=== PATIENT | male | born 1965 | race Caucasian/White ===

== ENCOUNTER 2017-10-05 09:21 | Day surgery (SDC) | END 2017-10-05 15:53 | disposition home or self-care (01) ==

== ENCOUNTER 2018-09-08 09:03 | Day surgery (SDC) | payer OTHER ==
[2018-09-07 18:00] VITALS: BMI 36.4
[2018-09-08] VITALS (12 sets, daily range): BP systolic 122–140; BP diastolic 77–89; PULSE 62–84; RESP 13–20; Ht 167.6 cm; Wt 100.3 kg
[~2018-09-08] VITALS: Ht 167.6 cm; Wt 100.3 kg
[~2018-09-08 09:03] MED LIST: CEFAZOLIN 2 GM/50 ML (PMX) 50 ML IVPB ONE; SEVOFLURANE 15 MIN ONE; SOD CHLORIDE 0.9% 1,000 ML IV SCH
[2018-09-08] MEDS ORDERED: BUPIVACAINE 0.25% (MPF) 30 ML INJ ONE (11:45)
--- NOTE | 2018-09-08 11:47 | PREAC ---
Date/Time of Note Date/Time of Note DATE: 09/08/18 TIME: 11:46 Anesthesia Eval and Record Evaluation Time Pre-Procedure Interview DATE: 09/08/18 TIME: 11:46 Age 53 Sex male NPO: 8 hrs Preoperative diagnosis Left shoulder mass Planned procedure Excision of mass Past Medical History Past Medical History: Includes GI: Obesity Surgery & Anesthesia Issues No known issue Meds Anticoagulation: No Beta Mary Anne within 24 hr: No Reason Beta Mary Anne not given: Pt. not on B-Mary Anne No Active Prescriptions or Reported Meds Current Medications Sodium Chloride 1,000 ml @ 75 mls/hr [id number] IV ; Start 09/08/18 at 09:00; Stop 09/08/18 at 22:19 Meds reviewed: Yes Allergies Coded Allergies: No Known Allergy (Unverified , 09/07/18) Allergies Reviewed: Yes Labs/Studies Labs Reviewed: Reviewed by anesthesiologist test: N/A Pre-procedure Exam Last vitals Vital Signs Date Temp Pulse Resp B/P (MAP) Pulse Ox O2 O2 Flow FiO2 Time Delivery Rate 09/08/18 96.3 66 16 123/84 99 Room Air 09:59 (97) Airway: Adequate mouth opening Mallampati: Mallampati II Teeth: Normal Lung: Normal Heart: Normal ASA Physical Status ASA physical status: 2 Emergency: None Planned Anesthetic General/MAC: LMA, MAC Planned Pain Management Parenteral pain med Pre-operative Attestations Prior to commencing anesthesia and surgery, the patient was re-evaluated, there was verification of: *The patient's identity *The results of appropriate recent lab work and preoperative vital signs *The above evaluation not changing prior to induction *Anesthetic plan, risk benefits, alternative and complications discussed with patient/family; questions answered; patient/family understands, accepts and wishes to proceed. NELI MACEDO MD Sep 08, 2018 11:47
[2018-09-08] MEDS ORDERED: CEFAZOLIN 1 GM INJ ONE (11:52)
[2018-09-08] MEDS ORDERED: LIDOCAINE 2% (SDV) 5 ML INJ ONE (11:52)
[2018-09-08] MEDS ORDERED: MEPERIDINE 100 MG INJ ONE (11:52)
[2018-09-08] MEDS ORDERED: PROPOFOL 20 ML ONE (11:52)
--- NOTE | 2018-09-08 12:29 | OPR ---
Date/Time of Note Date/Time of Note DATE: 09/08/18 TIME: 12:26 Operative Report Procedure Date: Sep 08, 2018 Preoperative Diagnosis left shoulder mass 8 cm mass Postoperative Diagnosis same Operation/Procedure Performed 1. excision of left shoulder mass 8 cm mass 8 cm incision 2. localized adjacent tissue transfer with the use of skin flaps 16 sq cm defect of left shoulder 3. therapeutic injection of subcutaneous anesthesia Surgeon see signature line Roll Cutter none Anesthesia Type: general Estimated Blood Loss: 10 - 50 ml's Transfusion none Specimen left shoulder mass Grafts/Implants none Complications none Pt Condition Post Procedure: stable Indications This is a 53-year-old male with a left shoulder mass posterior aspect. He requires surgical repair due to his pain. Risks alternatives benefits and percent were discussed with the patient. Patient's best understanding consents to the operation. Procedure Description Patient taken to the OR and prepped and draped in usual sterile fashion. Surgical time was performed. IV antibiotics given. Transverse incision was made at the 10 blade over the left posterior shoulder mass. Dissection with cautery was carried onto the mass. The mass was circumferentially excised over the muscle. Good hemostasis established. Due to tissue defect localization to his transfer with these of skin flaps were performed. Multilayer closure with interrupted 3-0 Vicryl and skin ginna. Therapeutic contains local anesthesia was injected at the incision site. Dry dressings were applied. Sharlene MOHAN Sep 08, 2018 12:28
[2018-09-08] MEDS ORDERED: METOCLOPRAMIDE 10 MG INJ IV PRN (12:30)
[2018-09-08] MEDS ORDERED: ONDANSETRON 4 MG INJ IV PRN (12:30)
[2018-09-08] MEDS ORDERED: HYDROCODONE/APAP (5/325) TAB PO ONE (12:30)
[2018-09-08] MEDS ORDERED: MIDAZOLAM 1 MG/ML 2 ML INJ IV PRN (12:30)
[2018-09-08] MEDS ORDERED: FENTAnyl 50 MCG/ML VIAL IV PRN ×3 (12:30)
[2018-09-08] MEDS ORDERED: MEPERIDINE 25 MG INJ IV PRN (12:30)
[2018-09-08] MEDS ORDERED: HYDROmorphONE 1 MG/5 ML IV SYRINGE IV PRN ×3 (12:30)
[2018-09-08] MEDS ORDERED: OXYCODONE/ACETAMINOPHEN (5/325) TAB PO PRN ×2 (12:30)
[2018-09-08] MEDS ORDERED: DIPHENHYDRAMINE 50 MG INJ IV PRN (12:30)
--- NOTE | 2018-09-08 13:07 | PAC ---
Date/Time of Note Date/Time of Note DATE: 09/08/18 TIME: 13:07 Post-Anesthesia Notes Post-Anesthesia Note Last documented vital signs Vital Signs Date Temp Pulse Resp B/P (MAP) Pulse Ox O2 O2 Flow FiO2 Time Delivery Rate 09/08/18 66 15 125/84 96 Room Air 12:54 (98) 09/08/18 98.5 12:52 09/08/18 6.0 12:43 Activity: WNL Respiratory function: WNL Cardiovascular function: WNL Mental status: Baseline Pain reasonably controlled: Yes Hydration appropriate: Yes Nausea/Vomiting absent: Yes NELI MACEDO MD Sep 08, 2018 13:07
[2018-09-09] MEDS ORDERED: CEPH-443 PO (17:32)
== END 2018-09-08 14:20 | disposition home or self-care (01) ==
LOC: SDS 09:03
PROVIDERS: ATTEND Surgery
DX: D23.62 Other benign neoplasm of skin of left upper limb, including shoulder (principal); E66.9 Obesity, unspecified; E11.9 Type 2 diabetes mellitus without complications
CPT/HCPCS: 14001; J0690; J2175; Z7610; 88307

== ENCOUNTER 2018-09-09 16:47 | Emergency (ER) | payer OTHER ==
[~2018-09-09] VITALS: Ht 172.7 cm; Wt 100.0 kg
[2018-09-09 16:51] VITALS: BP 143/86; PULSE 88; RESP 18; Ht 172.7 cm; Wt 100.0 kg
[2018-09-09] MEDS ORDERED: CEPH-443 PO (17:32)
--- NOTE | 2018-09-09 17:49 | ERD ---
ER Documentation Chief Complaint Chief Complaint pt bib family for wound check of left shoulder "lump removal " yesterday HPI 53-year-old male presents for recheck of the left upper shoulder wound. He had status post mass excision by Dr. Thacker yesterday. He states that he has had some discharge and his pain is well controlled. He was told to have the dressing changed today. ROS All systems reviewed and are negative except as per history of present illness. Medications Home Meds Active Scripts Cephalexin* (Keflex*) 500 Mg Capsule, 500 MG PO QID for 7 Days, CAP Prov:MERCEDEZ VINES MD 09/09/18 Allergies Allergies: Coded Allergies: No Known Allergy (Unverified , 09/07/18) PMhx/Soc History of Surgery: Yes (hrnia repare) Anesthesia Reaction: No Hx Neurological Disorder: No Hx Respiratory Disorders: No Hx Cardiac Disorders: No Hx Psychiatric Problems: No Hx Miscellaneous Medical Probl: No Hx Alcohol Use: No Hx Substance Use: No Hx Tobacco Use: Yes FmHx Family History: No diabetes, No coronary disease, No other Physical Exam Vitals Vital Signs Date Temp Pulse Resp B/P (MAP) Pulse Ox O2 O2 Flow FiO2 Time Delivery Rate 09/09/18 98.1 88 18 143/86 96 16:51 (105) Physical Exam Const: No acute distress Head: Atraumatic Eyes: Normal Conjunctiva ENT: Normal External Ears, Nose and Mouth. Neck: Full range of motion. No meningismus. Resp: Clear to auscultation bilaterally Cardio: Regular rate and rhythm, no murmurs Abd: Soft, non tender, non distended. Normal bowel sounds Skin: No petechiae or rashes. Left upper back shows ginna in place on the excision of a large mass presumably. There is some slight wound edge irritation and very slight dehiscence and serosanguineous discharge. Back: No midline or flank tenderness Ext: No cyanosis, or edema Neur: Awake and alert Psych: Normal Mood and Affect Procedures/MDM Patient presents with a healing incision on the left upper back from incision of a mass. There is some very slight dehiscence and some irritation of the wound edges and serous sinus drainage. Patient's next appointment is not for 2 weeks. Given the slight irritation we will initiate treatment with Keflex, continued wound care and return precautions for worsening redness, fevers, new worsening symptoms, otherwise with surgeon as scheduled. Departure Diagnosis: Primary Impression: Encounter for wound re-check Condition: Stable Patient Instructions: Post Op Wound Check, Infection, Post Op Wound Check, Pain Referrals: [facility] (PCP) Additional Instructions: Your recheck for worsening redness, fevers, new symptoms. See your surgeon as directed. MERCEDEZ VINES MD Sep 09, 2018 17:49
== END 2018-09-09 17:58 | disposition home or self-care (01) ==
LOC: FTE 16:47
DX: Z48.01 Encounter for change or removal of surgical wound dressing (principal); Z87.891 Personal history of nicotine dependence
CPT/HCPCS: 99281